=== PATIENT | male | born 1985 | race Hispanic/Latino ===

== ENCOUNTER 2017-02-06 04:43 | Emergency (ER) | payer BC ==
[2017-02-06] MEDS ORDERED: Mag-Al Plus 1200 MG/1200 MG/120 MG/30 ML UDCUP ONE (05:03)
[2017-02-06] MEDS ORDERED: Ibuprofen 600 MG TAB ONE (05:03)
[2017-02-06] MEDS ORDERED: Lidocaine Viscous Sol 2% 15 ml UD Cup ONE (05:03)
== END 2017-02-06 05:25 | disposition home or self-care (01) ==
LOC: SCSER 04:43
DX: J02.9 Acute pharyngitis, unspecified (principal); K21.9 Gastro-esophageal reflux disease without esophagitis; F41.9 Anxiety disorder, unspecified
CPT/HCPCS: 87081; 87430; 99283

== ENCOUNTER 2022-08-18 12:45 | Outpatient (CLI) | payer BC | END 2022-08-18 12:46 | disposition home or self-care (01) | LOC: ULT 12:45 | PROVIDERS: ATTEND Nurse Practitioner | DX: I47.1 Supraventricular tachycardia (principal) | CPT/HCPCS: 93306 ==

== ENCOUNTER 2022-08-25 06:07 | Day surgery (SDC) | payer BC ==
[2022-08-24 09:40] VITALS: BMI 32.3
[2022-08-25] MEDS ORDERED: Heparin 10,000 UNITS/ 10 ML VIAL ONE ×2 (06:30→08:55)
[2022-08-25] MEDS ORDERED: Heparin 25,000 units/D5W 500 ML ONE (06:36)
[2022-08-25] MEDS ORDERED: Lidocaine 1% (PF) 30 ML VIAL ONE (06:36)
[2022-08-25] MEDS ORDERED: Dexmedetomidine 200 MCG/2 ML VIAL ONE (06:55)
[2022-08-25] MEDS ORDERED: fentaNYL 50 mcg/mL 1 mL Vial ONE ×2 (07:10→09:42)
[2022-08-25] MEDS ORDERED: Midazolam HCl 2 mg/2 ml Vial ONE (07:10)
[2022-08-25] MEDS ORDERED: Famotidine/PF 20 mg/2ml Vial ONE (07:23)
[2022-08-25] MEDS ORDERED: Phenylephrine 10 MG/ML VIAL ONE (07:26)
[2022-08-25] MEDS ORDERED: Lidocaine 1% PF 5 ML VIAL ONE (07:26)
[2022-08-25] MEDS ORDERED: Ondansetron PF 4 MG/2 ML Vial ONE (07:26)
[2022-08-25] MEDS ORDERED: Propofol 500 MG/50 ML VIAL ONE ×2 (07:42→08:33)
[2022-08-25] MEDS ORDERED: Propofol 1,000 MG/100 ML VIAL IV ONE (09:20)
[2022-08-25] MEDS ORDERED: Isoproterenol 0.2 MG/1 ML AMP ONE (09:34)
[2022-08-25] MEDS ORDERED: Iopamidol 370 76% 100 ML VIAL ONE (09:50)
== END 2022-08-25 13:45 | disposition home or self-care (01) ==
LOC: SDC 06:07
PROVIDERS: ATTEND Internal Medicine Cardiovascular Disease
PROC: 4A023FZ Measurement of Cardiac Rhythm, Percutaneous Approach (ICD-10-PCS; principal; 2022-08-25)
PROC: 4A0234Z Measurement of Cardiac Electrical Activity, Percutaneous Approach (ICD-10-PCS; principal; 2022-08-25)
PROC: 02K83ZZ Map Conduction Mechanism, Percutaneous Approach (ICD-10-PCS; principal; 2022-08-25)
PROC: 02583ZZ Destruction of Conduction Mechanism, Percutaneous Approach (ICD-10-PCS; principal; 2022-08-25)
DX: I47.1 Supraventricular tachycardia (principal); Z79.899 Other long term (current) drug therapy
CPT/HCPCS: 36005; 93005; 93010; 93623; 93653; C1730; C1732; C1760; C1894; C2630; J1644; J2001; J2250; J2370; J2405; J2704; J3010; Q9967; S0028

== ENCOUNTER 2023-10-26 00:36 | Emergency (ER) | payer BC ==
[2023-10-26 01:14] LABS: #Basophils Less than 0.03 10x3/uL (0.0-0.2); %Basophils 0.2 % (0.0-1.0); %Eosinophils 1.4 % (0.0-10.0); %Monocytes 8.2 % (0.0-10.0); %Neutrophils 54.7 % (42.0-75.0); Hematocrit 44.9 % (42.0-52.0); Hemoglobin 15.9 g/dL (14.0-18.0); Mean Corpuscular HGB CONC 35.4 g/dL (32.0-36.0); Mean Corpuscular Hemoglobin 30.6 pg (27.0-31.0); Mean Corpuscular Volume 86.5 fL (78.0-98.0); Mean Platelet Volume 10.2 fL (7.4-10.4); Platelet Count 199 10x3/uL (130-400); RBC Distribution Width 12.5 % (11.5-14.5); Red Blood Cell (RBC) Count 5.19 mill/uL (4.70-6.10)
[2023-10-26 01:32] LABS: ALT (SGPT) 36 U/L (8-55); AST (SGOT) 27 U/L (5-34); Albumin 4.3 g/dL (3.5-5.0); Alkaline Phosphatase 80 U/L (40-110); Anion Gap 12 mmol/L (10-20); BUN (Urea Nitrogen) 17 mg/dL (8.9-20.6); Bilirubin, Total 0.4 mg/dL (0.2-1.2); Calc. Creatinine Clearance 0 mL/min (70-130); Calcium 9.8 mg/dL (7.8-10.44); Carbon Dioxide 24 mmol/L (22-29); Chloride 105 mmol/L (98-107); Estimated GFR 110; Globulin 3.5 g/dL (2.4-3.5); Glucose 111 mg/dL (70-105); Potassium 4.2 mmol/L (3.5-5.1); Protein, Total 7.8 g/dL (6.0-8.3); Sodium 137 mmol/L (136-145)
[2023-10-26 01:34] LABS: Troponin I Less than 0.010 ng/mL (< 0.028)
== END 2023-10-26 02:30 | disposition home or self-care (01) ==
LOC: ERS 00:36
DX: R00.2 Palpitations (principal)
CPT/HCPCS: 71045; 80053; 83735; 84443; 84484; 85025; 93005

== ENCOUNTER 2024-05-25 15:07 | Emergency (ER) | payer BC ==
[~2024-05-25 15:07] MED LIST: Iopamidol-370 76% 500 ML MDV (1 ML CHARGE) ONE
[2024-05-25 15:35] LABS: #Basophils Less than 0.03 10x3/uL (0.0-0.2); #Eosinophils Less than 0.03 10x3/uL (0.0-0.7); %Basophils 0.1 % (0.0-1.0); %Eosinophils 0.1 % (0.0-10.0); %Neutrophils 83.5 % (42.0-75.0); Hematocrit 44.1 % (42.0-52.0); Mean Corpuscular Hemoglobin 30.1 pg (27.0-31.0); Mean Corpuscular Volume 88.6 fL (78.0-98.0); Mean Platelet Volume 10.1 fL (7.4-10.4); Platelet Count 183 10x3/uL (130-400); RBC Distribution Width 12.3 % (11.5-14.5); Red Blood Cell (RBC) Count 4.98 mill/uL (4.70-6.10)
[2024-05-25 15:39] LABS: Bacteria/HPF 1+ HPF (None Seen); Bilirubin Negative (Negative); Blood, Urine 3+ (Negative); CAUTI Indications for Culture Dysuria,urgency,freq; Clarity Turbid (Clear); Glucose, Urine (Dipstick) Normal (Negative); Ketone, Urine Negative (Negative); Leukocyte 500 Leu/uL (Negative); Nitrite Negative (Negative); Protein, Urine (Dipstick) 100 mg/dL (Neg-Trace); Specific Gravity, Urine 1.005 (1.002-1.036); Squamous Epithelial 0-3 HPF (0-3); Urobilinogen Normal mg/dL (Less than 2); WBC/HPF Greater than 50 HPF (0-3)
[2024-05-25 15:40] LABS: Urine Culture Reflex Yes Yes
[2024-05-25 15:51] LABS: Anion Gap 13 mmol/L (10-20); BUN (Urea Nitrogen) 10 mg/dL (8.9-20.6); Calc. Creatinine Clearance 0 mL/min (70-130); Calcium 9.2 mg/dL (7.8-10.44); Carbon Dioxide 24 mmol/L (22-29); Chloride 103 mmol/L (98-107); Estimated GFR 105; Glucose 122 mg/dL (70-105); Potassium 3.5 mmol/L (3.5-5.1); Sodium 136 mmol/L (136-145)
[2024-05-25] MEDS ORDERED: cefTRIAXone (ROCEPHIN) 1 GM VIAL ONE (16:31)
[2024-05-25] MEDS ORDERED: Sodium Chloride 0.9% 100 ML ONE (16:31)
[2024-05-25] MEDS ORDERED: Ketorolac Tromethamine 30 MG (1 mL) VIAL ONE (17:09)
[2024-05-25] MEDS ORDERED: Acetaminophen 500 MG TAB ONE (18:28)
== END 2024-05-25 19:35 | disposition home or self-care (01) ==
LOC: ERS 15:07
DX: N39.0 Urinary tract infection, site not specified (principal)
CPT/HCPCS: 36415; 74177; 80048; 81001; 83605; 85025; 87040; 87086; 87428; 96365; 96375; J0696; J1885; Q9967